=== PATIENT | female | born 1965 | race African-American/Black ===

== ENCOUNTER 2016-10-10 14:56 | Inpatient (IN) ==
--- NOTE | 2016-10-10 15:25 | EKG Report ---
Stationary ECG Study [facility] ER Test Date: 10/10/2016 3:14 PM Pat Name: SHEREE TORRES Department: Room: Gender: F Fre[employer]er: : 1965 Requested by: Andrés Branch Order Number: [id number] Reading MD: DILAN CARDOZO Intervals [place] Rate: 81 P: 44 [place]: 179 QRS: 72 QRSD: 96 T: -23 QT: 386 QTc: 423 Interpretive Statements SINUS RHYTHM POSSIBLE ANTERIOR MYOCARDIAL INFARCTION, OF INDETERMINATE AGE Electronically Signed On 10-12-16 05:11:30 CDT by DILAN CARDOZO [email or web address]
[2016-10-10 16:11] LABS: Basophils % 0.3 % (0.0-0.8); Eosinophils # 0.2 10*3/uL (0.0-0.87); Eosinophils % 1.7 % (0.00-10.9); Hematocrit 41.8 VOL% (35.7-47.0); Hemoglobin 14.1 GM/DL (12.0-16.0); Immature Granulocytes % 0.3 %; Immature Granulocytes Absolute 0.03 #; Lymphocytes # 2.3 10*3/uL (1.4-4.0); Mean Corpuscular HGB Conc 33.7 GM/DL (32-36); Mean Corpuscular Hemoglobin 31 PG (27-34); Mean Corpuscular Volume 92.3 FL (87-102); Mean Platelet Volume 10.7 FL (9.6-12.0); Monocytes # 0.8 10*3/uL (0.11-0.8); Monocytes % 8.2 % (1.7-12.7); Neutrophils # 6.4 10*3/uL (1.4-7.4); Neutrophils % 65.5 % (38.7-73.9); Platelet Count 176 T/CUMM (130-400); Red Blood Count 4.53 MC/CUMM (3.8-5.5); White Blood Count 9.8 T/CUMM (4-12)
[2016-10-10 16:25] LABS: Alanine Aminotransferase 15 U/L (13-56); Albumin 3.1 G/DL (3.4-5.0); Alkaline Phosphatase 60 U/L (45-117); Aspartate Amino Transferase 10 U/L (0-37); Bilirubin,Total < 0.39 MG/DL (0.2-1.0); Blood Urea Nitrogen 12 MG/DL (7-18); Calcium 8.5 MG/DL (8.5-10.1); Glucose 78 MG/DL (74-106); Osmolality,Calculated 284.8 MOS/KG (273-304); Potassium 3.7 MMOL/L (3.5-5.1); Sodium 144 MMOL/L (136-145); Total Protein 5.9 G/DL (6.4-8.3); Troponin I Only < 0.015 NG/ML (0.00-0.045)
--- NOTE | 2016-10-10 16:27 | XRay Report ---
XR chest 1V portable Indication: Chest pain Comparison: 04 May 2016 Findings: The heart and mediastinum are stable in size and configuration. The pulmonary vascularity is slightly increased with bilateral increased interstitial lung density. No other lung infiltrates, effusions, pneumothorax or other abnormality is demonstrated. Impression: Findings suggest mild cardiac decompensation. PROCEDURE INTERPRETED AT [facility] DEPARTMENT OF RADIOLOGY Final Report Signed by: Dr. Zackary Ferguson
--- NOTE | 2016-10-10 16:30 | Emergency Department Note ---
Arrival - Arrival Chief Complaint: Chest Pain ED Nursing Triage Note: Brought in by EMS c/o left side chest pain-onset yesterday. +dizziness. Also reports two syncopal episodes. Patient states that she has been under a lot of stress lately and thinks this may be causing her chest pain. Mode of Arrival: Stretcher Limitations: No Limitations Source: Patient Time Seen by Provider: 10/10/16 16:11 - History of Present Illness HPI Narrative: Patient complains of sharp left-sided chest pain radiating into the left arm since this morning. It has been intermittent stabbing pain and she is having none at present. She had a short episode 2 days ago as well. She has had some nausea and shortness of breath. No diaphoresis. She says she had 2 syncopal episodes just prior to arrival. The patient attributes all of this to increased stress in her life from a family situation. She does have a history of hypertension, diabetes, cardiomyopathy, CAD, COPD and anxiety. She is still a smoker. Patient is asymptomatic at present. Date of Last Menstrual Period: hysterectomy Allergies/Adverse Reactions: Allergies Allergy/AdvReac Type Severity Reaction Status Date / Time acetaminophen [From Tylenol] Allergy Unknown/Unable Verified 08/14/16 11:00 to obtain ketorolac [From Toradol] Allergy Unknown/Unable Verified 08/14/16 11:00 to obtain Home Medications: Home Medications Medication Instructions Recorded Confirmed Type ALPRAZolam [Alprazolam] 2 mg PO BID 09/26/14 10/10/16 History Carvedilol 12.5 mg PO BID 09/26/14 10/10/16 History Digoxin [Digox] 125 mcg PO DAILY 09/26/14 10/10/16 History Albuterol Inhaler [Proventil 2 puff INH Q4H PRN #1 inhaler 04/12/15 10/10/16 Rx Inhaler] Aspirin [Ecotrin] 325 mg PO DAILY 05/04/16 10/10/16 History Furosemide Tab [Lasix Tab] 20 mg PO BID 05/04/16 10/10/16 History Nitroglycerin [Nitroglycerin SL 0.4 mg SL Q5M PRN 05/04/16 10/10/16 History Tab] Omeprazole [Prilosec] 20 mg PO DAILY #15 capsule 02/14/17 07/23/17 Rx predniSONE TAB [PredniSONE] 20 mg PO DAILY PRN 05/04/16 10/10/16 History hydrALAZINE TAB [Apresoline Tab] 100 mg PO TID #90 tablet 08/14/16 10/10/16 Rx Oxycodone HCl 15 mg PO DAILY PRN 10/10/16 10/10/16 History Review of System - Review of System 12 point system: reviewed and no additional remarkable complaints except as stated - Review of System Constitutional: Absent: fever Head/Ears/Nose/Throat: Absent: nasal drainage, sore throat Respiratory: Present: respiratory distress. Absent: cough Cardiovascular: Present: chest pain, edema. Absent: palpitations, dyspnea on exertion, orthopnea Gastrointestinal: Present: nausea. Absent: abdominal pain, vomiting Musculoskeletal: Present: arm pain. Absent: back pain, neck pain Neurological: Present: headache Psychiatric: Present: anxiety Medical,Surgical,& Family Hx - Medical History Cardio: History of: CHF, CAD, Hypertension, [place] Psychological: History of: Anxiety Disorders Endocrine: History of: Dyslipidemia Respiratory: History of: COPD Musculoskeletal: History of: Osteoporosis Hematology: History of: Blood Disorders (Non-Hodgkin's lymphoma) - Surgical History Cardiac Surgeries: Sugical HX of: Cardiac Catheterization Thoracic Surgeries: Patient denies;: Lobectomy Abdominal Surgeries: Surgical HX of: Appendectomy Reproductive Surgeries: Surgical HX of;: Hysterectomy - Family History Family History: Reports;: Family Cancer, Family Diabetes, Family Heart Disease, Family Hypertension - Social History Smoking Status: Current every day smoker Frequency of Alcohol Use: None Type of Drug Use: None Exam Vital Signs: Vital Signs Temperature 97.4 F L 10/10/16 15:07 Pulse Rate 90 10/10/16 17:20 Respiratory Rate 18 10/10/16 17:20 Blood Pressure 159/129 10/10/16 15:07 O2 Sat by Pulse Oximetry 99 10/10/16 17:20 Course - Reevaluation(s) Reevaluation #1: Patient has remained stable in the ER. I discussed the patient with the hospitalist service and they will see her and admit. Time: 17:53 Results - Labs CBC & BMP: 10/10/16 15:48 10/10/16 15:48 Lab Results: I have reviewed the patients labs Labs: Laboratory Tests 10/10/16 10/10/16 15:48 15:48 Total Bilirubin < 0.39 AST 10 ALT 15 Alkaline Phosphatase 60 Troponin I < 0.015 B-Natriuretic Peptide 209 H - Impressions Chest x-ray shows mild CHF. EKG shows a normal sinus rhythm at 81 with inverted T waves in leads III and F and Q waves in V1. Disposition Clinical Impression: Atypical chest pain, Hypertension, CHF (congestive heart failure), Syncope Case discussed with: patient
[2016-10-10] MEDS ORDERED: ALBUTEROL/IPRATROPIUM 3 ML NEB RESP TX STA (16:56)
[2016-10-10] MEDS ORDERED: hydrALAZINE 20 MG/1 ML VIAL IV STA (17:07)
[2016-10-10] MEDS ORDERED: hydrALAZINE 20 MG/1 ML VIAL ONE (17:15)
[2016-10-10] MEDS ORDERED: KETOROLAC 30 MG/1 ML VIAL ONE (17:59)
[2016-10-10] MEDS ORDERED: KETOROLAC 30 MG/1 ML VIAL IV STA (18:12)
--- NOTE | 2016-10-10 19:14 | Hospitalist History & Physical ---
<Gopal Beaulieu - Last Filed: 10/10/16 19:19> Assessment and Plan - Time spent with patient Time spent with patient: Greater than 30 minutes (1) Chest pain Status: Acute Assessment and plan: Admitted to telemetry for outpatient cardiac evaluation. Initial EKG and troponin unremarkable. Consult cardiology for stress test in a.m. Current Visit: No (2) CHF (congestive heart failure) Status: Acute Assessment and plan: BNP 209. Continue diuresis with Lasix. Current Visit: Yes (3) Hypertension Status: Acute Assessment and plan: Continue home medications. Current Visit: Yes (4) Syncope Status: Acute Assessment and plan: Carotid Dopplers. Echocardiogram. Continue to monitor blood pressure. Consider anemia workup. Current Visit: Yes (5) COPD (chronic obstructive pulmonary disease) Status: Chronic Current Visit: No History of Present Illness Chief complaint: chest pain History of present illness: Ms. Yang is a 50 year old -[place] female with past medical history significant for hypertension, congestive heart failure, cardiomyopathy, mood disorder who presents to the ED today with complaints of chest pain with onset this morning 0800. Patient reports that she did experience some "light chest pain" last night for which she took nitroglycerin and aspirin before going to sleep. She woke this morning to more intense pain at 8:00 AM at which time she took one nitroglycerin tablet with no relief. She called EMS and took another nitroglycerin before they arrived and received another in route to the hospital. On admission, the patient still complains of chest pain which radiates down her left arm and through to her back. Patient describes this pain as knifelike stabbing and rates it 8/10. She also tells me that she had two syncopal episodes today and may have hit her head during one of them. Of note, the patient is under a lot of social anxiety and stress in her home environment. On exam, the patient is noticeably anxious and complaining of unrelenting chest pain. She confirms headache, radiating chest pain, SOB and "clammy skin". She denies N/V, change in appetite, edema. Lab work is significant for: BNP 209. Cardiac enzymes are negative. EKG shows sinus rhythm with evidence of previous anterior infarct of indeterminate age. Case has been discussed with Dr. Rivas, ER physician, and Dr. Alvarado, admitting physician and the patient will be admitted for further evaluation and treatment. We will consult cardiology for a stress test in the a.m. She is a full code. Home medications have been reviewed and reconciled. Home Medications Medication Instructions Recorded Confirmed Type ALPRAZolam [Alprazolam] 2 mg PO BID 09/26/14 10/10/16 History Carvedilol 12.5 mg PO BID 09/26/14 10/10/16 History Digoxin [Digox] 125 mcg PO DAILY 09/26/14 10/10/16 History Albuterol Inhaler [Proventil 2 puff INH Q4H PRN #1 inhaler 04/12/15 10/10/16 Rx Inhaler] Aspirin [Ecotrin] 325 mg PO DAILY 05/04/16 10/10/16 History Furosemide Tab [Lasix Tab] 20 mg PO BID 05/04/16 10/10/16 History Nitroglycerin [Nitroglycerin SL 0.4 mg SL Q5M PRN 05/04/16 10/10/16 History Tab] Omeprazole [Prilosec] 20 mg PO DAILY #15 capsule 05/04/16 10/10/16 Rx predniSONE TAB [PredniSONE] 20 mg PO DAILY PRN 05/04/16 10/10/16 History hydrALAZINE TAB [Apresoline Tab] 100 mg PO TID #90 tablet 08/14/16 10/10/16 Rx Oxycodone HCl 15 mg PO DAILY PRN 10/10/16 10/10/16 History Allergies Allergy/AdvReac Type Severity Reaction Status Date / Time acetaminophen [From Tylenol] Allergy Unknown/Unable Verified 08/14/16 11:00 to obtain Medical,Surgical,& Family Hx - Medical History Cardio: History of: CHF, CAD, Hypertension, [place], Cardiovascular Problems ( enlarged heart) Psychological: History of: Anxiety Disorders Endocrine: History of: Dyslipidemia Respiratory: History of: COPD, Respiratory Problems (emphysema) Musculoskeletal: History of: Osteoporosis Hematology: History of: Blood Disorders (Non-Hodgkin's lymphoma) - Surgical History Cardiac Surgeries: Sugical HX of: Cardiac Catheterization Thoracic Surgeries: Patient denies;: Lobectomy Abdominal Surgeries: Surgical HX of: Appendectomy Reproductive Surgeries: Surgical HX of;: Hysterectomy - Family History Family History: Reports;: Family Cancer, Family Diabetes, Family Heart Disease, Family Hypertension - Social History Smoking Status: Current every day smoker Have you smoked in the last 12 months: Yes Time spent discussing smoking cessation with patient: 3 to 10 minutes (patient voices desire to quit again, but admits stress makes it difficult) Frequency of Alcohol Use: None Type of Drug Use: None Marital Status: Single Lives With:: Alone Functional capacity: independent ambulation 12 point system: reviewed and no additional remarkable complaints except as stated Exam - Constitutional Vitals: Period Temp Pulse Resp BP Sys/Salazar Pulse Ox Last 24 Hr 97.4 F-97.4 F 76-92 17-20 142-199/93-149 96-100 Exam: General appearance: normal weight, mild distress - Head Head exam: Present: normocephalic, atraumatic - Eye Eye exam: Present: EOMI. Absent: conjunctival injection, nystagmus Pupils: Present: ARISTEO, normal accommodation - ENT ENT exam: Present: normal exam, normal external ear exam - Neck Neck exam: Present: normal inspection. Absent: lymphadenopathy, tenderness, thyromegaly - Respiratory Respiratory exam: Present: rales, rhonchi, nonproductive cough - Cardiovascular Cardiovascular exam: Present: regular rate and rhythm. Absent: carotid bruit, gallop, rubs - GI/Abdominal GI/Abdominal exam: Present: normal bowel sounds. Absent: ascites, distended, mass - Extremities Exam Extremities exam: Present: normal inspection, normal capillary refill. Absent: edema - Neurological Exam Neurological exam: Present: alert, oriented X3, CN II-XII intact, reflexes normal - Psychiatric Psychiatric exam: Present: anxious - Skin Skin exam: Present: normal color, warm, dry Results - Labs CBC & BMP: 10/10/16 15:48 10/10/16 15:48 Lab Results: I have reviewed the past 24 hour labs - EKG EKG results: interpreted by ALLIE, sinus rhythm - Diagnostic Findings Procedure: Chest x-ray: image reviewed by me, report reviewed by me (Mild cardiac decompensation) <Yaneth Alvarado - Last Filed: 10/10/16 19:43> History of Present Illness History of present illness: Ms. Yang is a 50 year old female with multiple risk factors for CAD who presents with a history of chest pain and syncopal episodes.patient states she hit her head on the fall on both occasions when she passed out. Upon arrival, her blood pressure was high.First set of cardiac enzymes was negative. Plan Telemetry Serial cardiac enzymes Echo ASA, bblockers, ACEI Stress test CT head Reconcile home meds Bilateral Carotids, TSH, Lipids D-dimers UA Cardiology consult pain meds, GI, DVt prophylaxis nicotine patch Exam - Constitutional Vitals: Period Temp Pulse Resp BP Sys/Salazar Pulse Ox Last 24 Hr 97.4 F-97.4 F 76-92 17-20 142-199/91-149 94-100 Results - Labs CBC & BMP: 10/10/16 15:48 10/10/16 15:48
[2016-10-10] MEDS ORDERED: predniSONE 20 MG TABLET PO PRN (20:03)
[2016-10-10] MEDS ORDERED: NITROGLYCERIN SL 0.4 MG TABLET SL PRN (20:03)
[2016-10-10] MEDS ORDERED: ALBUTEROL 2.5 MG/3 ML NEB RESP TX PRN (20:03)
[2016-10-10] MEDS ORDERED: oxyCODONE IR 5 MG TABLET PO PRN (20:03)
[2016-10-10] MEDS ORDERED: ONDANSETRON 4 MG/2 ML VIAL IV PRN (20:03)
[2016-10-10] MEDS ORDERED: NICOTINE 21 MG/24 HR PATCH TRANSDERM PRN (20:03)
[2016-10-10] MEDS ORDERED: BISACODYL 5 MG TABLET PO PRN (20:03)
[2016-10-10 20:49] LABS: VLDL CHOLESTEROL 19.2 MG/DL
[2016-10-10 20:52] LABS: Risk Ratio 2.45
[2016-10-10 20:58] LABS: Thyroid Stimulating Hormone 0.648 uIU/ml (0.358-3.74)
--- NOTE | 2016-10-10 21:04 | CT Report ---
CT brain Indication: Head injury, fall Comparison: None available Technique: Axial CT imaging of the brain is performed without contrast with 3 mm increments. Findings: No evidence of hemorrhage, mass mass effect midline shift or acute infarct seen. The brain parenchyma attenuation and differentiation appears within normal limits. The ventricles and cisterns are normal in caliber. No cranial or skull base abnormality is identified. Impression: No evidence of abnormality demonstrated. This CT exam was performed using one or more the following dose reduction techniques: Automated exposure control, adjustment of the MA and/or KV according to patient size, or use of iterative reconstruction technique. PROCEDURE INTERPRETED AT [facility] DEPARTMENT OF RADIOLOGY Final Report Signed by: Dr. Zackary Ferguson
--- NOTE | 2016-10-10 21:07 | Ultrasound Report ---
Carotid artery ultrasound Indication: Syncope Comparison: None available Color Doppler flow and spectral analysis was performed. Findings: Small amount of atherosclerotic plaque is present in both proximal internal carotid arteries. The peak systolic velocity in the right is 57 cm/s . Ratio of flow is 1.0. The peak systolic velocity in the left is 60 cm/s . Ratio of flow is 0.9 Bilateral antegrade vertebral flow is seen. Impression: No evidence of hemodynamically significant stenosis is seen, 0-49% estimated stenosis. Consensus conference on the carotid ultrasound criteria used. Ultrasound images were captured and stored. PROCEDURE INTERPRETED AT [facility] DEPARTMENT OF RADIOLOGY Final Report Signed by: Dr. Zackary Ferguson
[2016-10-10] MEDS: ENOXAPARIN 40 MG/0.4 ML SYRINGE SUBCUT SCH (21:48)
[2016-10-10] MEDS: CARVEDILOL 12.5 MG TABLET PO SCH (21:49)
[2016-10-10] MEDS: ALPRAZolam 0.5 MG TABLET PO SCH (21:49)
[2016-10-10] MEDS: FUROSEMIDE 20 MG TABLET PO SCH (21:50)
[2016-10-10] MEDS: LISINOPRIL 2.5 MG TABLET PO SCH (21:50)
[2016-10-11 02:08] LABS: Apearance,Urine Slightly Hazy (Clear); Bacteria,Urine Occasional /HPF (Few); Bilirubin,Urine Negative (Negative); Blood, Urine Negative (Negative); Glucose,Urine (UA) Negative (Negative); Ketones,Urine Negative (Negative); Nitrite,Urine Negative (Negative); Protein,Urine Negative; RBC,Urine <1 /HPF (0-4); Squamous Epithelial Cell,Urine Occasional /HPF (0-10); Urine Color Yellow (Yellow); Urine Specific Gravity 1.016 (1.001-1.035); WBC,Urine <1 /HPF (0-6)
[2016-10-11] MEDS ORDERED: NALOXONE 0.4 MG/ML VIAL IV ONE (03:59)
[2016-10-11 05:44] LABS: Basophils % 0.3 % (0.0-0.8); Eosinophils # 0.2 10*3/uL (0.0-0.87); Eosinophils % 2.4 % (0.00-10.9); Hematocrit 41.2 VOL% (35.7-47.0); Hemoglobin 13.5 GM/DL (12.0-16.0); Immature Granulocytes % 0.3 %; Immature Granulocytes Absolute 0.02 #; Lymphocytes # 2.6 10*3/uL (1.4-4.0); Mean Corpuscular HGB Conc 32.8 GM/DL (32-36); Mean Corpuscular Hemoglobin 31 PG (27-34); Mean Corpuscular Volume 93.2 FL (87-102); Mean Platelet Volume 11.1 FL (9.6-12.0); Monocytes # 0.7 10*3/uL (0.11-0.8); Monocytes % 8.4 % (1.7-12.7); Neutrophils # 4.5 10*3/uL (1.4-7.4); Neutrophils % 56.6 % (38.7-73.9); Platelet Count 161 T/CUMM (130-400); Red Blood Count 4.42 MC/CUMM (3.8-5.5)
[2016-10-11 06:23] LABS: Alanine Aminotransferase 14 U/L (13-56); Albumin 2.9 G/DL (3.4-5.0); Alkaline Phosphatase 63 U/L (45-117); Aspartate Amino Transferase 14 U/L (0-37); Bilirubin,Total < 0.39 MG/DL (0.2-1.0); Blood Urea Nitrogen 9 MG/DL (7-18); Calcium 8.4 MG/DL (8.5-10.1); Glucose 83 MG/DL (74-106); Osmolality,Calculated 283.8 MOS/KG (273-304); Potassium 3.8 MMOL/L (3.5-5.1); Sodium 144 MMOL/L (136-145); Total Protein 5.6 G/DL (6.4-8.3)
[2016-10-11 08:15] LABS: Barbiturates Screen,Urine Negative (Negative); Benzodiazepines Screen,Urine Positive (Negative); Cannabinoid Screen,Urine Negative (Negative); Opiate Screen,Urine Positive (Negative); Phencyclidine Screen,Urine Negative (Negative)
--- NOTE | 2016-10-11 09:03 | Cardiology Consult Note ---
<Amina Peguero E - Last Filed: 10/11/16 10:05> Assessment and Plan - Time spent with patient Time spent with patient: Greater than 30 minutes Time spent discussing smoking cessation with patient: 3 to 10 minutes (1) Tobacco abuse Status: Chronic Assessment and plan: SEE PLAN OF CARE LISTED BELOW Current Visit: Yes (2) Chest pain Status: Acute Assessment and plan: SEE PLAN OF CARE LISTED BELOW Current Visit: No (3) Cardiomyopathy Status: Chronic Assessment and plan: SEE PLAN OF CARE LISTED BELOW Current Visit: No (4) COPD (chronic obstructive pulmonary disease) Status: Chronic Assessment and plan: SEE PLAN OF CARE LISTED BELOW Current Visit: No (5) Hypertension Status: Chronic Assessment and plan: SEE PLAN OF CARE LISTED BELOW Current Visit: Yes (6) Syncope Status: Acute Assessment and plan: SEE PLAN OF CARE LISTED BELOW Current Visit: Yes History of Present Illness - Data of Consult Patient: new to practice Consult date: 10/11/16 Requesting Physician: Yaneth Alvarado - Consult Narrative Reason for consult: chest pain History of present illness: [employer]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 SANTIZO Ms. Yang, 50BF, previously seen by Dr. Santizo though not in many years. Risk factors include: hypertension, tobaccoism, sedentary lifestyle. History of cardiomyopathy, EF 35-40% August 29, 2013 when using Cocaine. It appears she did not follow up in clinic due to financial constraints. Reports she has previously seen a plant guide in [place], [place] and was told she has had to heart attacks. There is no medical records available to us regarding her cardiac condition other than an echo from August 2013. She reports having had C in [place], [place] but did not receive stents. She believes was approximately 10 years ago. She is somewhat of a poor historian. Patient reports she began to experience left sided chest pain Tuesday evening before going to bed. She took nitroglycerin and aspirin and went to sleep. Tuesday morning, she woke with "sharp and stabbing pain" in the left upper chest area radiating to her left shoulder. She can identify no aggravating factors. Receiving IV medication did improve the chest discomfort. Rates the discomfort as an 8 on a scale of 1-10, currently chest pain-free. She tells me the pain was so bad at one point, she fell and hit her left frontal area at one point. Shortness of breath has worsened over the past week. Occasional cough nonproductive. Cardiac biomarkers negative, EKG abnormal with possible old anterior infarct. No arrhythmia noted. LDL 72. Discuss with Dr. Santizo. He has recommended that we schedule her for cardiac catheterization today. I will keep her NPO and proceed with orders ASSESSMENT/PLAN: 1. CHEST PAIN - concerning for angina. NPO for C today 2. HYPERTENSION - adjust medications accordingly during hospital stay 3. TOBACCO USE - greater than 5 minutes was spent today reinforcing the importance of tobacco cessation. 4. CARDIOMYOPATHY - echocardiogram 5. SYNCOPE - continue to monitor closely. Continue to monitor telemetry. 6. CARDIOMEGALY -echocardiogram is pending. CC: Prince Solorzano MD - Home Medications and Allergies Home Medications: Home Medications Medication Instructions Recorded Confirmed Type ALPRAZolam [Alprazolam] 2 mg PO BID 09/26/14 10/10/16 History Carvedilol 12.5 mg PO BID 09/26/14 10/10/16 History Digoxin [Digox] 125 mcg PO DAILY 09/26/14 10/10/16 History Albuterol Inhaler [Proventil 2 puff INH Q4H PRN #1 inhaler 04/12/15 10/10/16 Rx Inhaler] Aspirin [Ecotrin] 325 mg PO DAILY 05/04/16 10/10/16 History Furosemide Tab [Lasix Tab] 20 mg PO BID 05/04/16 10/10/16 History Nitroglycerin [Nitroglycerin SL 0.4 mg SL Q5M PRN 05/04/16 10/10/16 History Tab] Omeprazole [Prilosec] 20 mg PO DAILY #15 capsule 05/04/16 10/10/16 Rx predniSONE TAB [PredniSONE] 20 mg PO DAILY PRN 05/04/16 10/10/16 History Oxycodone HCl 15 mg PO DAILY PRN 10/10/16 10/10/16 History hydrALAZINE TAB [Apresoline Tab] 100 mg PO BID 10/11/16 10/11/16 History Allergies/Adverse Reactions: Allergies Allergy/AdvReac Type Severity Reaction Status Date / Time acetaminophen [From Tylenol] Allergy Unknown/Unable Verified 08/14/16 11:00 to obtain Review of systems: REVIEW OF SYSTEMS: - Constitutional Constitutional: Present: Fatigue. Absent: syncope, anorexia, night sweats - EENT Eyes: Absent: blurry vision, loss of vision, diplopia Ears: Absent: decreased hearing, ear pain, ear discharge - Cardiovascular Cardiovascular: Present: chest pain at various times. Denies edema, palpitations. Frequent dyspnea on exertion. Mild dyspnea today per. Absent: chest pain with deep breath, claudication - Respiratory Respiratory: Present: LEWIS worsening the past week, cough. Absent: wheezing, hemoptysis, change in phlegm color - Gastrointestinal Gastrointestinal: Denies: constipation. Absent: abdominal pain, hematemesis, hematochezia, melena, change in bowel habits, nausea - Genitourinary Genitourinary: Absent: difficulty urinating, dysuria, urinary hesitancy, flank pain - Musculoskeletal Musculoskeletal: Present: back pain Absent: joint swelling, muscle cramps, muscle weakness - Neurological Neurological: Present: normal gait without frequent falls. Absent: dizziness, hemiparesis - Psychiatric Psychiatric: Absent: anxiety, depression, difficulty concentrating - Endocrine Endocrine: Present: fatigue. Absent: cold intolerance, heat intolerance, polyuria, polyphagia, polydipsia - Hematologic/Lymphatic Hematologic/Lymphatic: Present: easy bruising. Absent: easy bleeding -Integumentary Integumentary: Absent: lesions, rashes, skin breakdown Medical,Surgical,& Family Hx - Medical History Cardio: History of: CHF, CAD, Hypertension, ME, Cardiovascular Problems ( enlarged heart) Psychological: History of: Anxiety Disorders Endocrine: History of: Dyslipidemia Respiratory: History of: COPD, Respiratory Problems (emphysema) Musculoskeletal: History of: Osteoporosis Hematology: History of: Blood Disorders (Non-Hodgkin's lymphoma) - Surgical History Cardiac Surgeries: Sugical HX of: Cardiac Catheterization Thoracic Surgeries: Patient denies;: Lobectomy Abdominal Surgeries: Surgical HX of: Appendectomy Reproductive Surgeries: Surgical HX of;: Hysterectomy - Family History Family History: Reports;: Family Cancer, Family Diabetes, Family Heart Disease, Family Hypertension - Social History Smoking Status: Current every day smoker Frequency of Alcohol Use: None Type of Drug Use: None Physical Examination Vital Signs Temp Pulse Resp BP Pulse Ox 97.4 F L 82 17 159/129 100 10/10/16 15:07 10/10/16 15:07 10/10/16 15:07 10/10/16 15:07 10/10/16 15:07 Exam: General: [Appears well with no apparent distress.] [Pleasant and cooperative. ] [Appears comfortable.] HEENT: [PERRL, normocephalic, atraumatic. Mucous membranes moist. No jaundice noted. Conjunctiva moist and clear, sclerae anicteric] Neck: No JVD/HJR, no thyromegaly or lymphadenopathy noted. No carotid bruit appreciated Cardiac: [Regular rate and rhythm.] [No murmur rub or gallop.] Lungs: [Clear to auscultation without accessory muscle use to assist the respiratory pattern.] Using oxygen intermittently Abdomen: Soft, bowel sounds normoactive. Nontender and nondistended. No abdominal bruit or thrill noted. No masses noted. Musculoskeletal: No fluid collection. Decreased range of motion is noted. Extremities: No clubbing, cyanosis noted. [ No edema noted.] Upper extremity pulses 2+. Lower extremity pulses 2+. Capillary refill less than 3 seconds. Skin: No unusual lesions or rashes. No skin breakdown appreciated. Neuro: Awake, alert and oriented 3. Moves all extremities well without hemiparesis or paralysis. No essential tremor is appreciated. Result/EKG - Labs CBC & BMP: 10/11/16 05:14 10/11/16 05:14 Lab Results: I have reviewed the past 24 hour labs Labs: Laboratory Results - last 24 hr 10/10/16 10/10/16 10/10/16 15:48 15:48 15:48 WBC 9.8 RBC 4.53 Hgb 14.1 Hct 41.8 MCV 92.3 MCH 31 MCHC 33.7 RDW 15.0 Plt Count 176 MPV 10.7 Neut % (Auto) 65.5 Lymph % (Auto) 24.0 [place] % (Auto) 8.2 Eos % (Auto) 1.7 Baso % (Auto) 0.3 Neut # (Auto) 6.4 Lymph # (Auto) 2.3 [place] # (Auto) 0.8 Eos # (Auto) 0.2 Baso # (Auto) 0.0 Immature Gran % 0.3 Nucleated RBC % 0.0 Immature Gran # 0.03 Nucleated RBCs # 0.00 D-Dimer, Quantitative Sodium 144 Potassium 3.7 Chloride 110 H Carbon Dioxide 28 Anion Gap 9.7 BUN 12 Creatinine 0.60 GFR Calculation 129 BUN/Creatinine Ratio 20.00 Glucose 78 Hemoglobin A1c Calculated Osmolality 284.8 Calcium 8.5 Total Bilirubin < 0.39 AST 10 ALT 15 Alkaline Phosphatase 60 Troponin I < 0.015 B-Natriuretic Peptide 209 H Total Protein 5.9 L Albumin 3.1 L Globulin 2.8 Albumin/Globulin Ratio 1.1 Triglycerides Cholesterol LDL Cholesterol VLDL Cholesterol HDL Cholesterol Heart Disease Risk Ratio TSH 3rd Generation Urine Color Urine Appearance Urine pH Ur Specific [place] Urine Protein Urine Glucose (UA) Urine Ketones Urine Blood Urine Nitrate Urine Bilirubin Urine Urobilinogen Urine Leukocytes Urine RBC Urine WBC Ur Squamous Epith Cells Urine Bacteria Ur Culture Indicated? Urine Opiates Screen Ur Barbiturates Screen Ur Phencyclidine Scrn U Amphetamine/Methamph U Benzodiazepines Scrn U Cocaine Metab Screen U Cannabinoids Screen 10/10/16 10/10/16 10/10/16 20:28 20:28 20:28 WBC RBC Hgb Hct MCV MCH MCHC RDW Plt Count MPV Neut % (Auto) Lymph % (Auto) [place] % (Auto) Eos % (Auto) Baso % (Auto) Neut # (Auto) Lymph # (Auto) [place] # (Auto) Eos # (Auto) Baso # (Auto) Immature Gran % Nucleated RBC % Immature Gran # Nucleated RBCs # D-Dimer, Quantitative <= 0.5 Sodium Potassium Chloride Carbon Dioxide Anion Gap BUN Creatinine GFR Calculation BUN/Creatinine Ratio Glucose Hemoglobin A1c Calculated Osmolality Calcium Total Bilirubin AST ALT Alkaline Phosphatase Troponin I B-Natriuretic Peptide 232 H Total Protein Albumin Globulin Albumin/Globulin Ratio Triglycerides 96 Cholesterol 162 LDL Cholesterol 72.0 VLDL Cholesterol 19.2 HDL Cholesterol 66 H Heart Disease Risk Ratio 2.45 TSH 3rd Generation 0.648 Urine Color Urine Appearance Urine pH Ur Specific [place] Urine Protein Urine Glucose (UA) Urine Ketones Urine Blood Urine Nitrate Urine Bilirubin Urine Urobilinogen Urine Leukocytes Urine RBC Urine WBC Ur Squamous Epith Cells Urine Bacteria Ur Culture Indicated? Urine Opiates Screen Ur Barbiturates Screen Ur Phencyclidine Scrn U Amphetamine/Methamph U Benzodiazepines Scrn U Cocaine Metab Screen U Cannabinoids Screen 10/10/16 10/11/16 10/11/16 20:28 01:00 04:00 WBC RBC Hgb Hct MCV MCH MCHC RDW Plt Count MPV Neut % (Auto) Lymph % (Auto) [place] % (Auto) Eos % (Auto) Baso % (Auto) Neut # (Auto) Lymph # (Auto) [place] # (Auto) Eos # (Auto) Baso # (Auto) Immature Gran % Nucleated RBC % Immature Gran # Nucleated RBCs # D-Dimer, Quantitative Sodium Potassium Chloride Carbon Dioxide Anion Gap BUN Creatinine GFR Calculation BUN/Creatinine Ratio Glucose Hemoglobin A1c 5.5 Calculated Osmolality Calcium Total Bilirubin AST ALT Alkaline Phosphatase Troponin I B-Natriuretic Peptide Total Protein Albumin Globulin Albumin/Globulin Ratio Triglycerides Cholesterol LDL Cholesterol VLDL Cholesterol HDL Cholesterol Heart Disease Risk Ratio TSH 3rd Generation Urine Color Yellow Urine Appearance Slightly hazy Urine pH 7.0 Ur Specific [place] 1.016 Urine Protein Negative Urine Glucose (UA) Negative Urine Ketones Negative Urine Blood Negative Urine Nitrate Negative Urine Bilirubin Negative Urine Urobilinogen 2.0 H Urine Leukocytes Negative Urine RBC <1 Urine WBC <1 Ur Squamous Epith Cells Occasional Urine Bacteria Occasional Ur Culture Indicated? Not indicated Urine Opiates Screen Positive H Ur Barbiturates Screen Negative Ur Phencyclidine Scrn Negative U Amphetamine/Methamph Negative U Benzodiazepines Scrn Positive H U Cocaine Metab Screen Negative U Cannabinoids Screen Negative 10/11/16 10/11/16 05:14 05:14 WBC 8.0 RBC 4.42 Hgb 13.5 Hct 41.2 MCV 93.2 MCH 31 MCHC 32.8 RDW 15.0 Plt Count 161 MPV 11.1 Neut % (Auto) 56.6 Lymph % (Auto) 32.0 [place] % (Auto) 8.4 Eos % (Auto) 2.4 Baso % (Auto) 0.3 Neut # (Auto) 4.5 Lymph # (Auto) 2.6 [place] # (Auto) 0.7 Eos # (Auto) 0.2 Baso # (Auto) 0.0 Immature Gran % 0.3 Nucleated RBC % 0.0 Immature Gran # 0.02 Nucleated RBCs # 0.00 D-Dimer, Quantitative Sodium 144 Potassium 3.8 Chloride 110 H Carbon Dioxide 25 Anion Gap 12.8 BUN 9 Creatinine 0.60 GFR Calculation 128 BUN/Creatinine Ratio 15.00 Glucose 83 Hemoglobin A1c Calculated Osmolality 283.8 Calcium 8.4 L Total Bilirubin < 0.39 AST 14 ALT 14 Alkaline Phosphatase 63 Troponin I B-Natriuretic Peptide Total Protein 5.6 L Albumin 2.9 L Globulin 2.7 Albumin/Globulin Ratio 1.0 L Triglycerides Cholesterol LDL Cholesterol VLDL Cholesterol HDL Cholesterol Heart Disease Risk Ratio TSH 3rd Generation Urine Color Urine Appearance Urine pH Ur Specific [place] Urine Protein Urine Glucose (UA) Urine Ketones Urine Blood Urine Nitrate Urine Bilirubin Urine Urobilinogen Urine Leukocytes Urine RBC Urine WBC Ur Squamous Epith Cells Urine Bacteria Ur Culture Indicated? Urine Opiates Screen Ur Barbiturates Screen Ur Phencyclidine Scrn U Amphetamine/Methamph U Benzodiazepines Scrn U Cocaine Metab Screen U Cannabinoids Screen - Diagnostic Findings Procedure: Chest x-ray: report reviewed by me - EKG EKG results: interpreted by me EKG shows: sinus rhythm <Carson Santizo - Last Filed: 10/11/16 10:28> History of Present Illness - Consult Narrative History of present illness: Cardiology addendum. Patient examined chart reviewed and discussed with nurse Amina Peguero. Severe chest pain requiring 3 nitro's for relief. Troponin negative. EKG shows sinus rhythm with old anterior wall ME and diffuse ST-T wave changes. Patient had cardiac cath at [facility] in 2006 which showed no blockages. History of cocaine abuse smoking crack, but none in several years. Chest x-ray shows cardiomegaly and early CHF. Echo Doppler today shows ejection fraction of 40% with normal valves, no effusion and diastolic dysfunction. Hemoglobin 13.5 potassium 3.8 creatinine 0.6 Plan INR now Heart cath. Procedure, risk benefits discussed with patient with nurse Huynh present for the full discussion. All questions answered. She agrees to proceed as outlined. Further recommendations will be determined by by her cath findings. CC: Prince Solorzano MD Physical Examination Vital Signs Temp Pulse Resp BP Pulse Ox 97.4 F L 82 17 159/129 100 10/10/16 15:07 10/10/16 15:07 10/10/16 15:07 10/10/16 15:07 10/10/16 15:07 Result/EKG - Labs CBC & BMP: 10/11/16 05:14 10/11/16 05:14 Labs: Laboratory Results - last 24 hr 10/10/16 10/10/16 10/10/16 15:48 15:48 15:48 WBC 9.8 RBC 4.53 Hgb 14.1 Hct 41.8 MCV 92.3 MCH 31 MCHC 33.7 RDW 15.0 Plt Count 176 MPV 10.7 Neut % (Auto) 65.5 Lymph % (Auto) 24.0 [place] % (Auto) 8.2 Eos % (Auto) 1.7 Baso % (Auto) 0.3 Neut # (Auto) 6.4 Lymph # (Auto) 2.3 [place] # (Auto) 0.8 Eos # (Auto) 0.2 Baso # (Auto) 0.0 Immature Gran % 0.3 Nucleated RBC % 0.0 Immature Gran # 0.03 Nucleated RBCs # 0.00 D-Dimer, Quantitative Sodium 144 Potassium 3.7 Chloride 110 H Carbon Dioxide 28 Anion Gap 9.7 BUN 12 Creatinine 0.60 GFR Calculation 129 BUN/Creatinine Ratio 20.00 Glucose 78 Hemoglobin A1c Calculated Osmolality 284.8 Calcium 8.5 Total Bilirubin < 0.39 AST 10 ALT 15 Alkaline Phosphatase 60 Troponin I < 0.015 B-Natriuretic Peptide 209 H Total Protein 5.9 L Albumin 3.1 L Globulin 2.8 Albumin/Globulin Ratio 1.1 Triglycerides Cholesterol LDL Cholesterol VLDL Cholesterol HDL Cholesterol Heart Disease Risk Ratio TSH 3rd Generation Urine Color Urine Appearance Urine pH Ur Specific [place] Urine Protein Urine Glucose (UA) Urine Ketones Urine Blood Urine Nitrate Urine Bilirubin Urine Urobilinogen Urine Leukocytes Urine RBC Urine WBC Ur Squamous Epith Cells Urine Bacteria Ur Culture Indicated? Urine Opiates Screen Ur Barbiturates Screen Ur Phencyclidine Scrn U Amphetamine/Methamph U Benzodiazepines Scrn U Cocaine Metab Screen U Cannabinoids Screen 10/10/16 10/10/16 10/10/16 20:28 20:28 20:28 WBC RBC Hgb Hct MCV MCH MCHC RDW Plt Count MPV Neut % (Auto) Lymph % (Auto) [place] % (Auto) Eos % (Auto) Baso % (Auto) Neut # (Auto) Lymph # (Auto) [place] # (Auto) Eos # (Auto) Baso # (Auto) Immature Gran % Nucleated RBC % Immature Gran # Nucleated RBCs # D-Dimer, Quantitative <= 0.5 Sodium Potassium Chloride Carbon Dioxide Anion Gap BUN Creatinine GFR Calculation BUN/Creatinine Ratio Glucose Hemoglobin A1c Calculated Osmolality Calcium Total Bilirubin AST ALT Alkaline Phosphatase Troponin I B-Natriuretic Peptide 232 H Total Protein Albumin Globulin Albumin/Globulin Ratio Triglycerides 96 Cholesterol 162 LDL Cholesterol 72.0 VLDL Cholesterol 19.2 HDL Cholesterol 66 H Heart Disease Risk Ratio 2.45 TSH 3rd Generation 0.648 Urine Color Urine Appearance Urine pH Ur Specific [place] Urine Protein Urine Glucose (UA) Urine Ketones Urine Blood Urine Nitrate Urine Bilirubin Urine Urobilinogen Urine Leukocytes Urine RBC Urine WBC Ur Squamous Epith Cells Urine Bacteria Ur Culture Indicated? Urine Opiates Screen Ur Barbiturates Screen Ur Phencyclidine Scrn U Amphetamine/Methamph U Benzodiazepines Scrn U Cocaine Metab Screen U Cannabinoids Screen 10/10/16 10/11/16 10/11/16 20:28 01:00 04:00 WBC RBC Hgb Hct MCV MCH MCHC RDW Plt Count MPV Neut % (Auto) Lymph % (Auto) [place] % (Auto) Eos % (Auto) Baso % (Auto) Neut # (Auto) Lymph # (Auto) [place] # (Auto) Eos # (Auto) Baso # (Auto) Immature Gran % Nucleated RBC % Immature Gran # Nucleated RBCs # D-Dimer, Quantitative Sodium Potassium Chloride Carbon Dioxide Anion Gap BUN Creatinine GFR Calculation BUN/Creatinine Ratio Glucose Hemoglobin A1c 5.5 Calculated Osmolality Calcium Total Bilirubin AST ALT Alkaline Phosphatase Troponin I B-Natriuretic Peptide Total Protein Albumin Globulin Albumin/Globulin Ratio Triglycerides Cholesterol LDL Cholesterol VLDL Cholesterol HDL Cholesterol Heart Disease Risk Ratio TSH 3rd Generation Urine Color Yellow Urine Appearance Slightly hazy Urine pH 7.0 Ur Specific [place] 1.016 Urine Protein Negative Urine Glucose (UA) Negative Urine Ketones Negative Urine Blood Negative Urine Nitrate Negative Urine Bilirubin Negative Urine Urobilinogen 2.0 H Urine Leukocytes Negative Urine RBC <1 Urine WBC <1 Ur Squamous Epith Cells Occasional Urine Bacteria Occasional Ur Culture Indicated? Not indicated Urine Opiates Screen Positive H Ur Barbiturates Screen Negative Ur Phencyclidine Scrn Negative U Amphetamine/Methamph Negative U Benzodiazepines Scrn Positive H U Cocaine Metab Screen Negative U Cannabinoids Screen Negative 10/11/16 10/11/16 05:14 05:14 WBC 8.0 RBC 4.42 Hgb 13.5 Hct 41.2 MCV 93.2 MCH 31 MCHC 32.8 RDW 15.0 Plt Count 161 MPV 11.1 Neut % (Auto) 56.6 Lymph % (Auto) 32.0 [place] % (Auto) 8.4 Eos % (Auto) 2.4 Baso % (Auto) 0.3 Neut # (Auto) 4.5 Lymph # (Auto) 2.6 [place] # (Auto) 0.7 Eos # (Auto) 0.2 Baso # (Auto) 0.0 Immature Gran % 0.3 Nucleated RBC % 0.0 Immature Gran # 0.02 Nucleated RBCs # 0.00 D-Dimer, Quantitative Sodium 144 Potassium 3.8 Chloride 110 H Carbon Dioxide 25 Anion Gap 12.8 BUN 9 Creatinine 0.60 GFR Calculation 128 BUN/Creatinine Ratio 15.00 Glucose 83 Hemoglobin A1c Calculated Osmolality 283.8 Calcium 8.4 L Total Bilirubin < 0.39 AST 14 ALT 14 Alkaline Phosphatase 63 Troponin I B-Natriuretic Peptide Total Protein 5.6 L Albumin 2.9 L Globulin 2.7 Albumin/Globulin Ratio 1.0 L Triglycerides Cholesterol LDL Cholesterol VLDL Cholesterol HDL Cholesterol Heart Disease Risk Ratio TSH 3rd Generation Urine Color Urine Appearance Urine pH Ur Specific [place] Urine Protein Urine Glucose (UA) Urine Ketones Urine Blood Urine Nitrate Urine Bilirubin Urine Urobilinogen Urine Leukocytes Urine RBC Urine WBC Ur Squamous Epith Cells Urine Bacteria Ur Culture Indicated? Urine Opiates Screen Ur Barbiturates Screen Ur Phencyclidine Scrn U Amphetamine/Methamph U Benzodiazepines Scrn U Cocaine Metab Screen U Cannabinoids Screen
[2016-10-11] MEDS ORDERED: MAGNESIUM SULF RIDER 2 GM in PREMIX 1 EACH IV PRN (10:18)
[2016-10-11] MEDS ORDERED: POTASSIUM CHLORIDE RIDER 10 MEQ in PREMIX 1 EACH IV PRN (10:18)
[2016-10-11] MEDS ORDERED: DIAZEPAM 5 MG TABLET PO ONE (10:18)
[2016-10-11] MEDS ORDERED: diphenhydrAMINE CAP 25 MG CAPSULE PO ONE (10:18)
[2016-10-11] MEDS ORDERED: SODIUM CHLORIDE 0.45% 1,000 ML IV SCH (10:30)
--- NOTE | 2016-10-11 10:41 | History and Physical Update ---
Sedation H&P Update - History and Physical H&P was reviewed, the patient examined and there: are no changes in the patients condition since last H&P was completed. - Dictation Physical: refer to scanned H&P - Physical Exam Mental Status: alert and oriented Heart: regular rate and rhythm Lung: other (coarse diffuse rhonchi) Abdomen: within normal limits Vitals: within normal limits - Sedation Plan for Sedation: moderate Patient Consent: Procedure disscussed with patient and patinet has consented., Risks and benefits were discussed with patient,including infection,, bleeding, injury to surrounding structures, seizure, temporary nerve, Patient understands and accepts potential risks/benefits and agrees to, proceed. ASA Class: II Airway Assessment: Class II: Soft palate, uvula, fauces visible
[2016-10-11 11:08] LABS: PT Patient Result 10.7 SECS
[2016-10-11] MEDS: LISINOPRIL 2.5 MG TABLET PO SCH ×2 (12:19→21:57)
[2016-10-11] MEDS: FUROSEMIDE 20 MG TABLET PO SCH ×2 (12:19→21:57)
[2016-10-11] MEDS: ASPIRIN EC 325 MG TABLET PO SCH (12:20)
[2016-10-11] MEDS: DIGOXIN 0.125 MG TABLET PO SCH (12:20)
[2016-10-11] MEDS: CARVEDILOL 12.5 MG TABLET PO SCH ×2 (12:20→21:57)
[2016-10-11] MEDS: PANTOPRAZOLE 40 MG TABLET PO SCH (12:21)
[2016-10-11] MEDS ORDERED: fentaNYL 100 MCG/2 ML VIAL ONE (13:19)
[2016-10-11] MEDS ORDERED: MIDAZOLAM 2 MG/2 ML VIAL ONE (13:19)
[2016-10-11] MEDS ORDERED: LIDOCAINE 1% 20 ML VIAL ONE (13:20)
[2016-10-11] MEDS ORDERED: HEPARIN/NACL 0.9% 2 UNITS/ML 1,000 ML IV ONE (13:20)
--- NOTE | 2016-10-11 13:47 | Cardiac Catheterization ---
Date of Procedure:: 10/11/16 Pre-op Diagnosis: Chest pain cardiomyopathy EF 40% transthoracic echo Post-op diagnosis: same (Nonischemic cardiomyopathy angiographically normal left dominant epicardial coronary arteries) Procedure: Procedures: 1. Left heart catheterization resting hemodynamics 2. Selective left and right coronary angiography 3. Right femoral iliac angiography 5. Closure right femoral arteriotomy Angio-Seal closure device After consent was taken from the patient. Taken to the catheterization lab for left heart catheterization via the femoral artery. Time out was taken and recorded. 1% lidocaine was infiltrated in the skin and subcutaneous tissue overlying the right femoral artery. Modified Seldinger technique and an 18- gauge Cook needle was used for access to the right femoral artery. An 0.35 J- wire was advanced through the needle into the central aorta under fluoroscopy. A small skin was made and a 6 [place] sheath was placed over the wire. The sheath was aspirated and flushed. A JL46 was advanced over the wires in the left main coronary artery was selectively engaged. Multiple orthogonal views of the left system were obtained. The catheter was then exchanged over the wire. The sheath was aspirated and flushed. A JR4 catheter was advanced over the wire into the central aorta. The right coronary was selectively engaged and orthogonal views of the right coronary artery were obtained. The catheter was then exchanged over the wire, the sheath was aspirated and flushed. At this time an angled pigtail catheter was advanced across the aortic valve into the ventricle. Pressure measurements were obtained. Pullback measurements were performed. The chlorine cells operator reviewed the films. The sheath was aspirated and flushed and a right femoral and iliac angiography was performed. The access site was amenable for closure and the area was reprepped with ChloraPrep and draped with sterile towels. The Angio-Seal closure device was used in standard technique. There was no hematoma and distal pulses were good. Total fluoroscopy time 3.3 minutes total fluoroscopy dose 275 mGy FINDINGS: LV: 156/12 LVEDP: 18 Ao:145/88 EF: Not assessed 40% by today's echo LM: Angiographically normal LAD: Large angiographically normal LCx: Large angiographically normal, dominant there is a very small high obtuse marginal has mild disease. RCA: This is a negligible artery supplies only small branches to the right ventricle RFA/JACK: Angiographically normal and amenable for closure Assessment: 1. Uncontrolled hypertension with elevated end-diastolic pressure ejection fraction of 40% by transthoracic echo today 2. Angiographically normal left dominant epicardial coronary arteries PLAN: 1. Medical management for uncontrolled hypertension and nonischemic cardiomyopathy 2. Therapy lifestyle changes risk factor modification Implants: Angio-Seal closure device right femoral arteriotomy Anesthesia: moderate conscious sedation Surgeon / Physician: Ev Vazquez Manager Creative: none Estimated blood loss: none Specimens: none sent Condition: stable Disposition: floor - Medications / Follow-up
--- NOTE | 2016-10-11 15:25 | Hospitalist Progress Note ---
Assessment and Plan (1) Cardiomyopathy Status: Chronic Assessment and plan: Ejection fraction 40%. Continue medical management. Left heart cath report pending. Current Visit: Yes Qualifiers: Cardiomyopathy type: unspecified Qualified Code(s): I42.9 - Cardiomyopathy , unspecified (2) COPD (chronic obstructive pulmonary disease) Status: Chronic Current Visit: Yes (3) Atypical chest pain Status: Acute Current Visit: Yes (4) Hypertension Status: Chronic Current Visit: Yes Qualifiers: Hypertension type: essential hypertension Qualified Code(s): I10 - Essential (primary) hypertension (5) Tobacco abuse Status: Chronic Current Visit: Yes Hospitalist: Subjective Interval history: Patient seen and examined. No acute events overnight. Case discussed with nursing staff. Labs reviewed. Left heart cath planned for today. Exam - Constitutional Vitals: Period Temp Pulse Resp BP Sys/Salazar Pulse Ox Last 24 Hr 97.1 F-97.7 F 74-92 17-20 122-199/70-149 94-100 Exam: Constitutional System: No distress. No tremulousness. Head: Normocephalic, atraumatic. Ears, Nose and Throat System: No pain or tenderness. No epistaxis or discharge Eyes System: Pupils equal, round, and reactive. Extraocular muscles intact. Neck: Supple, without adenopathy, No jugular venous distention. No thyromegaly, neck mass, or prior surgery apparent. Respiratory System: Chest clear to auscultation. Cardiovascular System: Heart with regular rate and rhythm. No murmur. GI System: Abdomen soft, nontender. Normo active bowel sounds present. Musculoskeletal System: limbs with no pedal edema. Full distal pulses. Neurological System: No discernable sensory deficit. No aphasia Psychiatric System: Conversation is rational Results - Labs CBC & BMP: 10/11/16 05:14 10/11/16 05:14 Lab Results: I have reviewed the past 24 hour labs Quality Measures - VTE Contraindication to Pharmacological VTE Prophylaxis: High Risk of Bleeding
[2016-10-11] MEDS: ALPRAZolam 0.5 MG TABLET PO SCH ×2 (16:54→21:57)
--- NOTE | 2016-10-11 17:41 | ECHO Report ---
Loida Yang Exam Date: 10/11/2016 10:00 Referring Physician: Technologist: britni Ureña ARDMS, RVT Age: 50 Ht (in): 136 Wt (lb): 168 Gender: F Exam Location: [facility] Echo Indications: Chest pain, unspecified, Essential (primary) hypertension, Syncope and collapse, Cardiomyopathy, unspecified, COPD, CHF BP: 136 / 84 HR: 79 Rhythm: Sinus Technical Quality: Good IMPRESSIONS EF 40 %, global hypokinesis. Grade I/IV diastolic dysfunction (abnormal relaxation filling pattern), normal to mildly elevated filling pressures. The right ventricle is normal in size and function. The right atrium is mildly enlarged. The left atrium is mildly enlarged. Mildly thickened mitral valve. Trace mitral valve regurgitation. Aortic valve sclerosis. Mild aortic valve regurgitation. Moderate tricuspid valve regurgitation. PAP 45-50 mmHJG. Trace pulmonary valve regurgitation. Normal pericardium without effusion. Normal ascending aorta dimension. MEASUREMENTS (Male / Female) Normal Values 2D ECHO LV Diastolic Diameter PLAX 7.0 cm 4.2 - 5.9 / 3.9 - 5.3 cm LV Systolic Diameter PLAX 5.3 cm LV Fractional Shortening PLAX 24.0 % IVS Diastolic Thickness 1.1 cm 0.6 - 1.0 / 0.6 - 0.9 cm LVPW Diastolic Thickness 1.1 cm 0.6 - 1.0 / 0.6 - 0.9 cm Aortic Root Diameter 3.2 cm LA Systolic Diameter LX 3.3 cm 3.0 - 4.0 / 2.7 - 3.8 cm DOPPLER TR Peak Velocity 305.0 cm/s TR Peak Gradient 37.2 mmHg FINDINGS Left Ventricle EF 40 %, global hypokinesis. Grade I/IV diastolic dysfunction (abnormal relaxation filling pattern), normal to mildly elevated filling pressures. Right Ventricle The right ventricle is normal in size and function. Right Atrium The right atrium is mildly enlarged. Left Atrium The left atrium is mildly enlarged. Mitral Valve Mildly thickened mitral valve. Trace mitral valve regurgitation. Aortic Valve Aortic valve sclerosis. Mild aortic valve regurgitation. Tricuspid Valve Morphologically normal tricuspid valve. Moderate tricuspid valve regurgitation. PAP 45-50 mmHJG. Pulmonic Valve Morphologically normal pulmonic valve. Trace pulmonary valve regurgitation. Pericardium Normal pericardium without effusion. Aorta Normal ascending aorta dimension. Ba Plavac (Electronically Signed) Final Date: 11 October 2016 17:40
[2016-10-11] MEDS: ENOXAPARIN 40 MG/0.4 ML SYRINGE SUBCUT SCH (20:09)
[2016-10-12] MEDS: ALPRAZolam 0.5 MG TABLET PO SCH ×2 (02:46→10:00)
[2016-10-12 05:18] LABS: Basophils % 0.3 % (0.0-0.8); Eosinophils # 0.1 10*3/uL (0.0-0.87); Eosinophils % 0.4 % (0.00-10.9); Hematocrit 41.7 VOL% (35.7-47.0); Hemoglobin 13.7 GM/DL (12.0-16.0); Immature Granulocytes % 0.3 %; Immature Granulocytes Absolute 0.04 #; Lymphocytes # 2.7 10*3/uL (1.4-4.0); Lymphocytes % 21.7 % (21.3-54.2); Mean Corpuscular HGB Conc 32.9 GM/DL (32-36); Mean Corpuscular Hemoglobin 31 PG (27-34); Mean Corpuscular Volume 93.1 FL (87-102); Mean Platelet Volume 11.3 FL (9.6-12.0); Monocytes % 7.8 % (1.7-12.7); Neutrophils # 8.5 10*3/uL (1.4-7.4); Neutrophils % 69.5 % (38.7-73.9); Platelet Count 177 T/CUMM (130-400); Red Blood Count 4.48 MC/CUMM (3.8-5.5); Red Cell Distribution Width 14.9 % (9.3-17.3); White Blood Count 12.3 T/CUMM (4-12)
[2016-10-12 05:45] LABS: Calcium 8.8 MG/DL (8.5-10.1); Magnesium 2.2 MG/DL (1.8-2.4); Osmolality,Calculated 282.1 MOS/KG (273-304); Potassium 4.3 MMOL/L (3.5-5.1)
[2016-10-12 06:00] LABS: Magnesium 2.2 MG/DL (1.8-2.4); Osmolality,Calculated 280.3 MOS/KG (273-304); Potassium 4.6 MMOL/L (3.5-5.1)
[2016-10-12 09:15] VITALS: BP 141/91
[2016-10-12] MEDS ORDERED: LISINOPRIL 10 MG TABLET PO SCH (09:30)
[2016-10-12] MEDS: ASPIRIN EC 325 MG TABLET PO SCH (10:00)
[2016-10-12] MEDS: CARVEDILOL 12.5 MG TABLET PO SCH (10:03)
--- NOTE | 2016-10-12 10:06 | Cardiology Progress Note ---
<Amina Nunez E - Last Filed: 10/12/16 10:12> Assessment and Plan - Time spent with patient Time spent with patient: Greater than 30 minutes Time spent discussing smoking cessation with patient: 3 to 10 minutes (1) Tobacco abuse Status: Chronic Assessment and plan: SEE PLAN OF CARE LISTED BELOW Current Visit: Yes (2) Chest pain Status: Resolved Assessment and plan: SEE PLAN OF CARE LISTED BELOW Current Visit: No Qualifiers: Chest pain type: other chest pain Qualified Code(s): R07.89 - Other chest pain; R07.8 - Other chest pain (3) Cardiomyopathy Status: Chronic Assessment and plan: SEE PLAN OF CARE LISTED BELOW Current Visit: Yes Qualifiers: Cardiomyopathy type: non-obstructive hypertrophic Qualified Code(s): I42.2 - Other hypertrophic cardiomyopathy (4) COPD (chronic obstructive pulmonary disease) Status: Chronic Assessment and plan: SEE PLAN OF CARE LISTED BELOW Current Visit: Yes (5) Hypertension Status: Chronic Assessment and plan: SEE PLAN OF CARE LISTED BELOW Current Visit: Yes Qualifiers: Hypertension type: essential hypertension Qualified Code(s): I10 - Essential (primary) hypertension (6) Syncope Status: Resolved Assessment and plan: SEE PLAN OF CARE LISTED BELOW Current Visit: Yes Qualifiers: Syncope type: unspecified Qualified Code(s): R55 - Syncope and collapse Cardiology - PN: Subj Interval history: OPERATIONS COORDINATOR: DR. SANTIZO OCTOBER 11, 2016: Ms. Yang, 50BF, previously seen by Dr. Santizo though not in many years. Risk factors include: hypertension, tobaccoism, sedentary lifestyle. History of cardiomyopathy, EF 35-40% August 29, 2013 when using cocaine. It appears she did not follow up in clinic due to financial constraints. Reports she has previously seen a safekeeping clerk in [place], [place] and was told she has had two heart attacks. There is no medical records available to us regarding her cardiac condition other than an echo from August 2013. She reports having had C in but did not receive stents. She believes was approximately 10 years ago. She is somewhat of a poor historian. Patient reports she began to experience left sided chest pain Tuesday evening before going to bed. She took nitroglycerin and aspirin and went to sleep. Tuesday morning, she woke with "sharp and stabbing pain" in the left upper chest area radiating to her left shoulder. She can identify no aggravating factors. Receiving IV medication did improve the chest discomfort. Rates the discomfort as an 8 on a scale of 1-10, currently chest pain-free. She tells me the pain was so bad at one point, she fell and hit her left frontal area at one point. Shortness of breath has worsened over the past week. Occasional cough nonproductive. Cardiac biomarkers negative, EKG abnormal with possible old anterior infarct. No arrhythmia noted. LDL 72. OCTOBER 12, 2016: Patient underwent elective cardiac catheterization yesterday, performed by Dr. Vazquez. The following is noted: Assessment: 1. Uncontrolled hypertension with elevated end-diastolic pressure ejection fraction of 40% by transthoracic echo today 2. Angiographically normal left dominant epicardial coronary arteries PLAN: 1. Medical management for uncontrolled hypertension and nonischemic cardiomyopathy 2. Therapy lifestyle changes risk factor modification She tolerated the procedure well without complication and was returned to our telemetry unit in stable condition. Overnight, she has had no complaints of chest pain, heaviness or tightness. Labs are stable. She is feeling well and would like to be discharged home today. Right groin is soft, free of hematoma or bruit. We discussed the importance of continued follow-up. She very much enjoys seeing her safekeeping clerk in [place], [place]. She pronounces his name is something close to "Dr. Milligan," along with Dr. Meier. No need for lipid-lowering agent due to LDL of 72 with no known coronary obstruction. From a cardiology standpoint, she is stable for discharge home. Again, she prefers to follow-up with a safekeeping clerk in [place] therefore, I will not give her follow-up with us in [place], [place]. Greater than 30 minutes was spent today did discussing post cath expectations. ASSESSMENT/PLAN: 1. CHEST PAIN -noncardiac chest pain. This was not NSTEMI. 2. HYPERTENSION - adequately controlled adjust medications accordingly during hospital stay. 3. TOBACCO USE - greater than 5 minutes was spent today reinforcing the importance of tobacco cessation. 4. CARDIOMYOPATHY - NICM, EF 40%. Continue beta-blockade, MALLORY inhibitor. Exam (Progress Note) - Constitutional Vitals: Period Temp Pulse Resp BP Sys/Salazar Pulse Ox Last 24 Hr 97.4 F-99 F 71-94 16-20 127-168/84-109 93-98 Exam: General: [Appears well with no apparent distress.] [Pleasant and cooperative. ] [Appears comfortable.] HEENT: [PERRL, normocephalic, atraumatic. Mucous membranes moist. No jaundice noted. Conjunctiva moist and clear, sclerae anicteric] Neck: No JVD/HJR, no thyromegaly or lymphadenopathy noted. No carotid bruit appreciated Cardiac: [Regular rate and rhythm.] [No murmur rub or gallop.] Lungs: [Clear to auscultation without accessory muscle use to assist the respiratory pattern.] Requiring oxygen Abdomen: Soft, bowel sounds normoactive. Nontender and nondistended. No abdominal bruit or thrill noted. No masses noted. Musculoskeletal: No fluid collection. Decreased range of motion is noted. Extremities: Right groin soft, free of hematoma or bruit. No clubbing, cyanosis noted. [ No edema noted.] Upper extremity pulses 2+. Lower extremity pulses 2+. Capillary refill less than 3 seconds. Skin: No unusual lesions or rashes. No skin breakdown appreciated. Neuro: Awake, alert and oriented 3. Moves all extremities well without hemiparesis or paralysis. No essential tremor is appreciated. Result/EKG - Labs CBC & BMP: 10/12/16 04:38 10/12/16 04:38 Lab Results: I have reviewed the past 24 hour labs Labs: Laboratory Results - last 24 hr 10/11/16 10/12/16 10/12/16 10:38 04:38 04:38 WBC 12.3 H D RBC 4.48 Hgb 13.7 Hct 41.7 MCV 93.1 MCH 31 MCHC 32.9 RDW 14.9 Plt Count 177 MPV 11.3 Neut % (Auto) 69.5 Lymph % (Auto) 21.7 [place] % (Auto) 7.8 Eos % (Auto) 0.4 Baso % (Auto) 0.3 Neut # (Auto) 8.5 H Lymph # (Auto) 2.7 [place] # (Auto) 1.0 H Eos # (Auto) 0.1 Baso # (Auto) 0.0 Immature Gran % 0.3 Nucleated RBC % 0.0 Immature Gran # 0.04 Nucleated RBCs # 0.00 INR 1.0 PT Patient/Control Mix 10.7 Sodium 141 Potassium 4.6 Chloride 108 H Carbon Dioxide 26 Anion Gap 11.6 BUN 15 Creatinine 0.60 GFR Calculation 128 BUN/Creatinine Ratio 25.00 H Glucose 89 Calculated Osmolality 280.3 Calcium 9.0 Magnesium 2.2 10/12/16 04:38 WBC RBC Hgb Hct MCV MCH MCHC RDW Plt Count MPV Neut % (Auto) Lymph % (Auto) [place] % (Auto) Eos % (Auto) Baso % (Auto) Neut # (Auto) Lymph # (Auto) [place] # (Auto) Eos # (Auto) Baso # (Auto) Immature Gran % Nucleated RBC % Immature Gran # Nucleated RBCs # INR PT Patient/Control Mix Sodium 142 Potassium 4.3 Chloride 109 H Carbon Dioxide 26 Anion Gap 11.3 BUN 15 Creatinine 0.60 GFR Calculation 128 BUN/Creatinine Ratio 25.00 H Glucose 87 Calculated Osmolality 282.1 Calcium 8.8 Magnesium 2.2 - Diagnostic Findings Procedure: Chest x-ray: report reviewed by me - EKG EKG results: interpreted by me EKG shows: sinus rhythm Quality Measures - VTE Contraindication to Pharmacological VTE Prophylaxis: High Risk of Bleeding Specialty Discharge - Follow Up or Referrals Follow up with: Clemencia Deal M.D. [Primary Care Provider] - 1 Week - Speciality Discharge Instructions Cardiology Instructions: Patient prefers to follow-up with her safekeeping clerk in [place], [place]. Please ask her to do so within the next 2-3 weeks. <Carson Santizo - Last Filed: 10/12/16 11:29> Cardiology - PN: Subj Interval history: Cardiology addendum Patient examined, chart reviewed, and discussed with nurse Amina nunez. Nonischemic cardia myopathy EF 40% and widely patent coronaries. She feels better. No shortness of breath or chest pain. Telemetry has been benign. Blood pressure still little high, 150/90. Regular rhythm no gallop. Clear lungs. Abdomen benign. Right groin benign. Lab data today Sodium 142 potassium 4.3 chloride 109 CO2 26 BUN 15 creatinine 0.60 Magnesium 2.2 glucose 87 Plan Increase lisinopril 20 mg twice daily Agree with discharge. Patient to follow-up with her safekeeping clerk in [facility]. Exam (Progress Note) - Constitutional Vitals: Period Temp Pulse Resp BP Sys/Salazar Pulse Ox Last 24 Hr 97.4 F-99 F 71-94 16-20 127-168/84-109 93-98 Result/EKG - Labs CBC & BMP: 10/12/16 04:38 10/12/16 04:38 Labs: Laboratory Results - last 24 hr 10/12/16 10/12/16 10/12/16 04:38 04:38 04:38 WBC 12.3 H D RBC 4.48 Hgb 13.7 Hct 41.7 MCV 93.1 MCH 31 MCHC 32.9 RDW 14.9 Plt Count 177 MPV 11.3 Neut % (Auto) 69.5 Lymph % (Auto) 21.7 [place] % (Auto) 7.8 Eos % (Auto) 0.4 Baso % (Auto) 0.3 Neut # (Auto) 8.5 H Lymph # (Auto) 2.7 [place] # (Auto) 1.0 H Eos # (Auto) 0.1 Baso # (Auto) 0.0 Immature Gran % 0.3 Nucleated RBC % 0.0 Immature Gran # 0.04 Nucleated RBCs # 0.00 Sodium 141 142 Potassium 4.6 4.3 Chloride 108 H 109 H Carbon Dioxide 26 26 Anion Gap 11.6 11.3 BUN 15 15 Creatinine 0.60 0.60 GFR Calculation 128 128 BUN/Creatinine Ratio 25.00 H 25.00 H Glucose 89 87 Calculated Osmolality 280.3 282.1 Calcium 9.0 8.8 Magnesium 2.2 2.2
[2016-10-12] MEDS: DIGOXIN 0.125 MG TABLET PO SCH (10:08)
[2016-10-12] MEDS: FUROSEMIDE 20 MG TABLET PO SCH (10:11)
[2016-10-12] MEDS: PANTOPRAZOLE 40 MG TABLET PO SCH (10:11)
--- NOTE | 2016-10-12 10:46 | Discharge Summary ---
Hospital Course - Hospital Course Hospital Course: Ms. Yang, 50 y/o BF, previously seen by Dr. Santizo though not in many years. Risk factors include: hypertension, tobaccoism, sedentary lifestyle. History of cardiomyopathy, EF 35-40% August 29, 2013 when using cocaine. It appears she did not follow up in clinic due to financial constraints. Reports she has previously seen a skein dyer in [place], [place] and was told she has had two heart attacks. There is no medical records available to us regarding her cardiac condition other than an echo from August 2013. She reports having had LHC in [employer], [place] but did not receive stents. She believes was approximately 10 years ago. She is somewhat of a poor historian. Patient reports she began to experience left sided chest pain Tuesday evening before going to bed. She took nitroglycerin and aspirin and went to sleep. Tuesday morning, she woke with "sharp and stabbing pain" in the left upper chest area radiating to her left shoulder. She can identify no aggravating factors. Receiving IV medication did improve the chest discomfort. Rates the discomfort as an 8 on a scale of 1-10, currently chest pain-free. She tells me the pain was so bad at one point, she fell and hit her left frontal area at one point. Shortness of breath has worsened over the past week. Occasional cough nonproductive. Cardiac biomarkers negative, EKG abnormal with possible old anterior infarct. No arrhythmia noted. LDL 72. OCTOBER 12, 2016: Patient underwent elective cardiac catheterization yesterday, performed by Dr. Vazquez. The following is noted: Assessment: 1. Uncontrolled hypertension with elevated end-diastolic pressure ejection fraction of 40% by transthoracic echo today 2. Angiographically normal left dominant epicardial coronary arteries PLAN: 1. Medical management for uncontrolled hypertension and nonischemic cardiomyopathy 2. Therapy lifestyle changes risk factor modification She tolerated the procedure well without complication and was returned to our telemetry unit in stable condition. Overnight, she has had no complaints of chest pain, heaviness or tightness. Labs are stable. She is feeling well and would like to be discharged home today. Right groin is soft, free of hematoma or bruit. We discussed the importance of continued follow-up. She very much enjoys seeing her skein dyer in [place], [place]. She pronounces his name is something close to "Dr. Milligan," along with Dr. Meier. No need for lipid-lowering agent due to LDL of 72 with no known coronary obstruction. From a cardiology standpoint, she is stable for discharge home. Again, she prefers to follow-up with a skein dyer in [place] therefore, I will not give her follow-up with us in [place], [place]. Greater than 30 minutes was spent today did discussing post cath expectations. ASSESSMENT/PLAN: 1. CHEST PAIN -noncardiac chest pain. This was not NSTEMI. 2. HYPERTENSION - adequately controlled adjust medications accordingly during hospital stay. 3. TOBACCO USE - greater than 5 minutes was spent today reinforcing the importance of tobacco cessation. 4. CARDIOMYOPATHY - NICM, EF 40%. Continue beta-blockade, MALLORY inhibitor. - Time spent with patient Time with patient DS: Greater than 30 minutes (Total discharge time for this patient, including [id number] time, clinical documentation, medication reconciliation, and discharge planning was 36 minutes.) Diagnosis - Discharge Diagnosis (1) Cardiomyopathy Status: Chronic (2) COPD (chronic obstructive pulmonary disease) Status: Chronic (3) Atypical chest pain Status: Resolved (4) Hypertension Status: Chronic (5) Tobacco abuse Status: Chronic Discharge Plan - Discharge Data Disposition: Disch To Home/Self Care Condition at Discharge: Stable Discharge Diet: advance to your usual diet Activity: resume usual activities as tolerated Hygiene: no restrictions Weight Bearing at Discharge: full weight bearing Driving: no restrictions Contact your physician if you experience:: fever over 101, Shortness of breath, Bleeding - Discharge Medications New hydrALAZINE TAB [Apresoline Tab] 100 mg PO TID #90 tablet HYDROcodone/ACETAMIN 7.5-325 [[place] 7.5-325] 1 tablet PO Q6H PRN #20 tablet PRN Reason: Pain Moderate (4-7) Lisinopril [Prinivil] 10 mg PO BID #60 tablet Nicotine 21 mg/24 Hr Patch [Nicoderm CQ 21 mg/24 hr Patch] 1 patch TRANSDERM DAILY PRN patch PRN Reason: Nicotine Cravings Continue Digoxin [Digox] 125 mcg PO DAILY Carvedilol 12.5 mg PO BID Albuterol Inhaler [Proventil Inhaler] 2 puff INH Q4H PRN #1 inhaler PRN Reason: Shortness Of Breath/Wheezing predniSONE TAB [PredniSONE] 20 mg PO DAILY PRN PRN Reason: Wheezing Aspirin [Ecotrin] 325 mg PO DAILY Furosemide Tab [Lasix Tab] 20 mg PO BID Nitroglycerin [Nitroglycerin SL Tab] 0.4 mg SL Q5M PRN PRN Reason: Chest Pain Omeprazole [Prilosec] 20 mg PO DAILY #15 capsule Changed ALPRAZolam [Alprazolam] 0.5 mg PO BID #10 tablet Discontinued Oxycodone HCl 15 mg PO DAILY PRN PRN Reason: Pain hydrALAZINE TAB [Apresoline Tab] 100 mg PO BID - Follow Up or Referral Follow Up: Clemencia Deal M.D. [Primary Care Provider] - 1 Week - Forms/Instructions Additional Discharge Instructions: Follow-up with primary care physician within 1 week Exam - Constitutional Vitals: Period Temp Pulse Resp BP Sys/Salazar Pulse Ox Last 24 Hr 97.4 F-99 F 71-94 16-20 127-168/84-109 93-98 Discharge Results Labs on day of discharge: Labs from last 24 hours 10/12/16 10/12/16 10/12/16 04:38 04:38 04:38 WBC 12.3 H D RBC 4.48 Hgb 13.7 Hct 41.7 MCV 93.1 MCH 31 MCHC 32.9 RDW 14.9 Plt Count 177 MPV 11.3 Neut % (Auto) 69.5 Lymph % (Auto) 21.7 [place] % (Auto) 7.8 Eos % (Auto) 0.4 Baso % (Auto) 0.3 Neut # (Auto) 8.5 H Lymph # (Auto) 2.7 [place] # (Auto) 1.0 H Eos # (Auto) 0.1 Baso # (Auto) 0.0 Immature Gran % 0.3 Nucleated RBC % 0.0 Immature Gran # 0.04 Nucleated RBCs # 0.00 INR PT Patient/Control Mix Sodium 142 141 Potassium 4.3 4.6 Chloride 109 H 108 H Carbon Dioxide 26 26 Anion Gap 11.3 11.6 BUN 15 15 Creatinine 0.60 0.60 GFR Calculation 128 128 BUN/Creatinine Ratio 25.00 H 25.00 H Glucose 87 89 Calculated Osmolality 282.1 280.3 Calcium 8.8 9.0 Magnesium 2.2 2.2 10/11/16 10:38 WBC RBC Hgb Hct MCV MCH MCHC RDW Plt Count MPV Neut % (Auto) Lymph % (Auto) [place] % (Auto) Eos % (Auto) Baso % (Auto) Neut # (Auto) Lymph # (Auto) [place] # (Auto) Eos # (Auto) Baso # (Auto) Immature Gran % Nucleated RBC % Immature Gran # Nucleated RBCs # INR 1.0 PT Patient/Control Mix 10.7 Sodium Potassium Chloride Carbon Dioxide Anion Gap BUN Creatinine GFR Calculation BUN/Creatinine Ratio Glucose Calculated Osmolality Calcium Magnesium DS: Provider Date of admission: 10/10/16 18:24 Primary care physician: Clemencia Deal M.D. Attending physician on admission: Yaneth Alvarado MD Consults: 10/10/16 20:03 Consult to Physician [CONS] Routine Comment: chest pain r/o CO Consulting Provider: Cardiology - [facility] When should Consulting Provider be notified: In am Person Notified: Citlali Date Notified: 10/11/16 Time Notified: 07:40 Discharging clinician: Prince Solorzano MD Expected date of discharge: 10/12/16
[2016-10-12] MEDS ORDERED: LISINOPRIL 20 MG TABLET PO SCH (11:30)
--- NOTE | 2016-10-14 11:25 | Physician Query Form ---
CLICK EDIT DOCUMENT TO SELECT QUERY ANSWER --> OK --> SIGN Meena Pabon RN, CCDS Certified Clinical Chemical Operations Specialist W) [phone] (f) [phone] [email or web address]: Make your selection(s) from the choices in EACH section by typing an "x" and enter comments in the comment section. Please use your independent medical judgment in providing your response. This request does not imply that any particular answer is desired or expected. CLINICAL INDICATORS: (Providers should not edit this section) The medical record indicates that the patient was admitted with chest pain, CHF , "Findings suggest mild cardiac decompensation", BNP of 209#, "cardiomyopathy EF 40% transthoracic echo" and the patient was on a maintenance dose of Lasix. Please provide further specificity regarding CHF. ACUITY: ( ) Acute ( ) Chronic ( X) Acute on Chronic ( ) Clinically unable to determine TYPE: ( ) Systolic (HFrEF - heart failure with reduced systolic function/EF) ( X) Diastolic (HFpEF - heart failure with preserved systolic function/EF) ( ) Combined Systolic/Diastolic ( ) Other, please specify: ( ) Clinically unable to determine ( ) The patient does NOT have CHF COMMENTS: PLEASE ALSO DOCUMENT RESPONSE IN PROGRESS NOTES AND/OR DISCHARGE SUMMARY Use of terms such as suspected, likely, or probable (associated with a specific diagnosis that is being evaluated, monitored, or treated as if it exists) are acceptable and can be restated in the discharge summary if not ruled out. MTDD
== END 2016-10-12 11:32 | disposition home or self-care (01) | DRG 287 ==
LOC: EDBD → EDUNIT# → N.ED 14:56 → N.EDINP 14:56 → SUATTDRO 18:24 → N.EDINP 19:39 → N.TELEN 20:11
PROVIDERS: ADMIT Internal Medicine; ATTEND Family Medicine
PROC: CLCCHCL (ICD-10-PCS; 2016-10-11 12:15)